=== PATIENT | female | born 1955 | race Caucasian/White ===

== ENCOUNTER 2020-02-17 13:06 | Emergency (ER) | payer MEDICARE ==
[~2020-02-17] VITALS: Ht 165.1 cm; Wt 90.7 kg
--- NOTE | 2020-02-17 13:20 | NUR ---
BIB SELF C/O COUGH SINCE FEB 09 "IM FEELING TIRED ALL THE TIME" "I JUST WANT XRAY." PATIENT A/OX4, BREATHING EVEN AND UNLABORED, NOSOB NOTED. NEEDS ATTENDED.
--- NOTE | 2020-02-17 14:25 | NUR ---
COVID SWAB SENT.
[2020-02-17] MEDS ORDERED: AZITHROMYCIN 250 MG TABLET ONE (14:27)
[2020-02-17] MEDS ORDERED: DEXAMETHASONE 4 MG TABLET ONE (14:28)
[2020-02-17] MEDS ORDERED: DEXAMETHASONE 1 MG TABLET ONE (14:28)
[2020-02-17] MEDS ORDERED: AZITHROMYCIN 250 MG TABLET PO ONE (14:30)
[2020-02-17] MEDS ORDERED: DEXAMETHASONE 1 MG TABLET PO ONE (14:30)
--- NOTE | 2020-02-17 16:03 | NUR ---
received a call from the lab regarding covid 19 result "positive".
--- NOTE | 2020-02-17 16:21 | NUR ---
Patient a/ox4, breathing even and unlabored, no sob noted. Needs attended. Kept comfortable. IV removed. Catheter intact and site benign. Pressure and 4x4 applied to site. No bleeding noted.Patient discharged to home in stable condition. Written and verbal after care instructions given. Patient verbalizes understanding of instruction.
[2020-02-17 16:23] VITALS: BP 159/87
== END 2020-02-17 16:23 | disposition home or self-care (01) ==
LOC: ER 13:10
DX: U07.1 COVID-19 (principal); J12.82 Pneumonia due to coronavirus disease 2019; I10 Essential (primary) hypertension; E11.9 Type 2 diabetes mellitus without complications
CPT/HCPCS: 71045; 82962; 87426; 99284; J8540 ×2; C9803

== ENCOUNTER 2020-02-21 23:11 | Inpatient (IN) | payer MEDICARE ==
[~2020-02-21] VITALS: Ht 165.1 cm; Wt 91.2 kg
--- NOTE | 2020-02-21 23:15 | NUR ---
TO ER BED 17 BIB WHEELCHAIR C/O GENERALIZED WEAKNESS AND SOB X1 DAY. TESTED COVID (+) Feb. PT AAOX4, NOTED PT O2 SAT 84% ON RA. PLACE PT ON CARDIAC MONITORING, CONITNUOUS POX. PLACE PT ON 10L/SIMPLE MASK, O2 SAT INCREASED TO 95%. STARTED SL 18G TO R HAND, BLOOD DRAWN AND SENT TO LAB. ER MD AT BESIDE TO EVAL PT WITH ORDERS RECEIVED. WILL CARRY OUT ORDERS.
[2020-02-21 23:47] LABS: BASOPHILS % (AUTO) 0.3 % (0.0-2.0); EOSINOPHILS % (AUTO) 0.1 % (0.0-6.0); HEMATOCRIT 41 % (33-45); LYMPHOCYTES # (AUTO) 0.8 /CMM (0.8-4.8); LYMPHOCYTES % (AUTO) 11.1 % (20.0-44.0); MEAN CORPUSCULAR HGB CONC 34 g/dl (31.0-36.0); MEAN CORPUSCULAR VOLUME 91 fL (82-100); MONOCYTES # (AUTO) 0.2 /CMM (0.1-1.30); MONOCYTES % (AUTO) 2.9 % (2.0-12.0); NEUTROPHILS # (AUTO) 6.5 /CMM (1.8-8.9); NEUTROPHILS % (AUTO) 85.6 % (43.0-81.0); PLATELET COUNT (AUTO) 246 /CMM (150-450); RED BLOOD CELL COUNT(AUTO) 4.52 MIL/uL (4.0-5.2); WHITE BLOOD COUNT (AUTO) 7.6 K/uL (4.3-11.0)
[2020-02-21] MEDS ORDERED: AZITHROMYCIN 500 MG VIAL ONE (23:55)
[2020-02-21] MEDS ORDERED: CEFTRIAXONE 1GM BAG (ER ONLY) 50 ML IV ONE (23:55)
[2020-02-21] MEDS ORDERED: methylPREDNISolone SOD SUCC 125 MG/2ML VIAL ONE (23:55)
[2020-02-22] MEDS ORDERED: CEFTRIAXONE 1GM BAG (ER ONLY) 1 GM/50 ML PIGGYBACK IV ONE
[2020-02-22] MEDS ORDERED: AZITHROMYCIN 500 MG in IV D5W 250 ML IV ONE ×2
[2020-02-22] MEDS ORDERED: methylPREDNISolone SOD SUCC 125 MG/2ML VIAL IV ONE
[2020-02-22 00:19] LABS: ALBUMIN 2.8 g/dL (3.4-5.0); CALCIUM, SERUM 8.8 mg/dL (8.5-10.1); CREATININE 0.9 mg/dL (0.6-1.3); TOTAL PROTEIN, SERUM 7.5 g/dL (6.4-8.2)
[2020-02-22 00:35] LABS: BILIRUBIN,TOTAL 0.3 mg/dL (0.2-1.0)
--- NOTE | 2020-02-22 00:35 | NUR ---
DR. PETER SPEAKING WITH DR. HONEY STONE REGARDING ADMISSION
[2020-02-22 01:23] LABS: POTASSIUM 2.8 mmol/L (3.5-5.1)
[2020-02-22] MEDS ORDERED: POTASSIUM CHLORIDE 20 MEQ TAB.PRT.SR PO ONE ×2 (01:30)
[2020-02-22 02:23] LABS: C-REACTIVE PROTEIN 25.7 mg/dL (0.0-0.9)
--- NOTE | 2020-02-22 03:46 | NUR ---
pt assissted to restroom and changed to bed 4. pt rerturned to [facility], no complain of pain or discomfort vss
[2020-02-22] MEDS ORDERED: LISI-604 PO (08:43)
[2020-02-22] MEDS ORDERED: ENOXAPARIN SODIUM 40 MG/0.4 ML DISP.SYRIN SQ SCH (10:30)
[2020-02-22] MEDS ORDERED: LABETALOL HCL IV 100MG VIAL IV PRN (11:00)
[2020-02-22] MEDS: DEXAMETHASONE SOD PHOSPHATE 10 MG/ML VIAL IV SCH (13:30)
[2020-02-22] MEDS: ENOXAPARIN SODIUM 40 MG/0.4 ML DISP.SYRIN SQ SCH ×2 (13:30→21:15)
[2020-02-22] MEDS ORDERED: ENOXAPARIN SODIUM 40 MG/0.4 ML DISP.SYRIN SQ ONE ×2 (13:41→20:58)
[2020-02-22] MEDS ORDERED: DEXAMETHASONE SOD PHOSPHATE 10 MG/ML VIAL ONE (13:41)
[2020-02-22] MEDS ORDERED: LABETALOL HCL IV 100MG VIAL ONE (13:41)
[2020-02-22] MEDS ORDERED: REMDESIVIR (CHARGED) 200 MG, *LOADING DOSE 1 EA in IV NS 0.9% 210 ML IV ONE (15:00)
--- NOTE | 2020-02-22 15:00 | NUR ---
bp rechecked. post administration of labetalol. bp noted at 156/63
--- NOTE | 2020-02-22 19:15 | NUR ---
rec'd report from GOPAL Valencia for jeff
--- NOTE | 2020-02-22 21:13 | NUR ---
INFORMED LAB THAT DR LARSON WILL GIVE COMPLETED IND FORM TO LAB TOMORROW IN THE AM.
--- NOTE | 2020-02-23 00:54 | NUR ---
BED ASSIGNMENT 202
--- NOTE | 2020-02-23 01:01 | NUR ---
bed 202 given to GOPAL Leroy for jeff. Mariaa will notify when room is cleaned and available
--- NOTE | 2020-02-23 01:31 | NUR ---
REPORT GIVEN TO GOPAL HERNANDEZ. WILL TRANSPORT PT VIA ACLS PROTOCOL.
[2020-02-23 01:45] VITALS: BP 165/88
--- NOTE | 2020-02-23 01:45 | NUR ---
BALANCE ASSEMBLERCASH TELLER NOTE Patient arrived via gurney at 0145. VS BP165/88 T98 P85 R20 O295%. A/O x4. Tele monitor sinus rhythm. Breathing even, diminished mild labor with non-productive cough. Patient on 15L non-rebreather mask, tolerating well. No JVD. Tongue midline, no tracheal deviation. Brachial and pedal pulses 2+, symmetrical. Sensations intact. No numbness or tingling. Skin is warm, pink, dry, intact. IV site right hand 18g saline locked, patent and intact. No signs of redness or infiltration. Abdomen large, round, soft, non-tender. BS active. Patient is continent with BRP. Urine output clear and yellow without difficulty. No edema. Able to move extremities well. House Shorer strength 5+. Patient is ambulatory. Patient oriented to room. All belongings and valuables reviewed and documented. Bed in low position, wheels locked, side rails up x2, call light within reach.
[2020-02-23 02:30] VITALS: BP 165/88
[2020-02-23 04:00] VITALS: BP 169/78
[2020-02-23] MEDS ORDERED: ENALAPRILAT INJ (1.25 MG/ML) 1.25 MG/ML VIAL IV ONE (04:45)
[2020-02-23] MEDS: ENALAPRILAT DIHYD. (2.5MG/2ML) 1.25 MG/ML VIAL IV PRN ×2 (04:53→16:52)
--- NOTE | 2020-02-23 06:13 | NUR ---
CIRCUIT RECORDER CLOSING NOTE Patient asleep in bed, A/O x4. Tele monitor sinus rhythm. Breathing even, diminished mild labor with non-productive cough. Patient on 15L non-rebreather mask, tolerating well. IV site right hand 18g saline locked, patent and intact. No signs of redness or infiltration. Patient is continent with BRP. Urine output clear and yellow without difficulty. No edema. Bed in low position, wheels locked, side rails up x2, call light within reach.
[2020-02-23 07:00] LABS: HEMATOCRIT 40 % (33-45); HEMOGLOBIN 13.7 g/dL (11.5-14.8); LYMPHOCYTES # (AUTO) 0.5 /CMM (0.8-4.8); LYMPHOCYTES % (AUTO) 7.7 % (20.0-44.0); MEAN CORPUSCULAR HGB CONC 34 g/dl (31.0-36.0); MEAN CORPUSCULAR VOLUME 91 fL (82-100); MONOCYTES # (AUTO) 0.4 /CMM (0.1-1.30); MONOCYTES % (AUTO) 5.6 % (2.0-12.0); NEUTROPHILS # (AUTO) 5.6 /CMM (1.8-8.9); NEUTROPHILS % (AUTO) 86.7 % (43.0-81.0); PLATELET COUNT (AUTO) 298 /CMM (150-450); WHITE BLOOD COUNT (AUTO) 6.5 K/uL (4.3-11.0)
[2020-02-23 07:26] LABS: ALBUMIN 2.5 g/dL (3.4-5.0); BILIRUBIN,DIRECT 0.1 mg/dL (0.0-0.2); BILIRUBIN,TOTAL 0.2 mg/dL (0.2-1.0); CREATININE 0.8 mg/dL (0.6-1.3); MAGNESIUM 2.5 mg/dL (1.8-2.4); PHOSPHORUS 3.1 mg/dL (2.5-4.9); POTASSIUM 3.2 mmol/L (3.5-5.1); TOTAL PROTEIN, SERUM 7.1 g/dL (6.4-8.2)
--- NOTE | 2020-02-23 07:43 | NUR ---
TELE/RN OPENING NOTES RECEIVED PATIENT ON BED. PATIENT IN NO APPARENT RESPIRATORY DISTRESS NOTED. NO SIGN AND SYMPTOM OF PAIN NOTED AT THIS TIME. WILL CONTINUE TO MONITOR.
[2020-02-23] MEDS: DEXAMETHASONE SOD PHOSPHATE 10 MG/ML VIAL IV SCH (09:24)
[2020-02-23] MEDS: ENOXAPARIN SODIUM 40 MG/0.4 ML DISP.SYRIN SQ SCH ×2 (09:29→21:14)
[2020-02-23] MEDS ORDERED: POTASSIUM CHLORIDE 20 MEQ TAB.PRT.SR PO ONE (11:30)
[2020-02-23] MEDS ORDERED: REMDESIVIR (CHARGED) 100 MG in IV NS 0.9% 230 ML IV SCH (15:00)
[2020-02-23] MEDS: REMDESIVIR (CHARGED) 100 MG in IV NS 0.9% 100 ML IV SCH (16:31)
--- NOTE | 2020-02-23 19:18 | NUR ---
TELE/RN CLOSING NOTES PATIENT IS ON BED. PATIENT IS ON 15L OXYGEN VIA NON REBREATHER MASK SATURATION 95%. PATIENT IN NO APPARENT RESPIRATORY DISTRESS. NO COMPLAINED OF PAIN NOTED AT THIS TIME. TELE MONITOR READING SINUS RHYTHM 77 BPM. SEEN AND EXAMINED BY MD WITH ORDERS MADE AND CARRIED OUT. ALL DUE MEDICATIONS WAS GIVEN. WILL ENDORSED TO CALL CENTRE SUPERVISOR FOR MAYA
--- NOTE | 2020-02-23 19:30 | NUR ---
manager economic opening notes Received Pt from morning nurse. Pt is resting in bed comfortably. Pt is alert and orientedX3. Respiration is on non rebreather mask 15 L FI02 90% with O2 sat is 100%. No SOB. No S/S of distress noted. IV site at R hand # 18 is clean, intact and flushes well, SL. Tele monitor showed SR hr at 77 bpm. Safety precautions is maintained. Bed at low position, brakes locked, side rails upX2 and call light is within reach. Will continue to monitor.
[2020-02-23 20:00] VITALS: BP 152/83
[2020-02-24] VITALS (8 sets, daily range): BP systolic 156–173; BP diastolic 75–90
--- NOTE | 2020-02-24 06:40 | NUR ---
phototypesetting equipment monitor closing notes Pt is resting in bed comfortably. Pt is alert and orientedX3. Respiration is on non rebreather mask 15 L FI02 90% with O2 sat is 95%. No SOB. No S/S of distress noted. IV site at R hand # 18 is clean, intact and flushes well, SL. Tele monitor showed SR hr at 67 bpm. VS is stable. Afebrile. Kept Pt clean, dry and comfortable. All needs met and attended. Safety precautions is maintained. Bed at low position, brakes locked, side rails upX2 and call light is within reach. Will endorse to morning nurse for MAYA.
--- NOTE | 2020-02-24 07:40 | NUR ---
TELE/RN OPENING NOTES RECEIVED PATIENT ON BED. PATIENT IS ON NON REBREATHER MASK AT PRESCRIBED SETTINGS. PATIENT IN NO APPARENT RESPIRATORY DISTRESS NOTED. NO COMPLAINED OF PAIN NOTED AT THIS TIME. TELE MONITOR READING SINUS RHYTHM 74 BPM. WILL CONTINUE TO MONITOR.
[2020-02-24 07:49] LABS: ALBUMIN 2.5 g/dL (3.4-5.0); BILIRUBIN,DIRECT 0.1 mg/dL (0.0-0.2); BILIRUBIN,TOTAL 0.4 mg/dL (0.2-1.0); CREATININE 0.8 mg/dL (0.6-1.3); MAGNESIUM 2.5 mg/dL (1.8-2.4); PHOSPHORUS 3.4 mg/dL (2.5-4.9); POTASSIUM 3.7 mmol/L (3.5-5.1); TOTAL PROTEIN, SERUM 6.9 g/dL (6.4-8.2)
[2020-02-24 07:55] LABS: BASOPHILS % (AUTO) 0.1 % (0.0-2.0); EOSINOPHILS % (AUTO) 0.3 % (0.0-6.0); HEMATOCRIT 41 % (33-45); LYMPHOCYTES # (AUTO) 0.8 /CMM (0.8-4.8); LYMPHOCYTES % (AUTO) 10.1 % (20.0-44.0); MEAN CORPUSCULAR HGB CONC 34 g/dl (31.0-36.0); MEAN CORPUSCULAR VOLUME 91 fL (82-100); MONOCYTES # (AUTO) 0.5 /CMM (0.1-1.30); NEUTROPHILS # (AUTO) 6.4 /CMM (1.8-8.9); NEUTROPHILS % (AUTO) 83.5 % (43.0-81.0); PLATELET COUNT (AUTO) 312 /CMM (150-450); RED BLOOD CELL COUNT(AUTO) 4.53 MIL/uL (4.0-5.2); WHITE BLOOD COUNT (AUTO) 7.7 K/uL (4.3-11.0)
[2020-02-24] MEDS: DEXAMETHASONE SOD PHOSPHATE 10 MG/ML VIAL IV SCH (08:52)
[2020-02-24] MEDS: ENOXAPARIN SODIUM 40 MG/0.4 ML DISP.SYRIN SQ SCH ×2 (08:52→21:39)
--- NOTE | 2020-02-24 09:53 | NUR ---
TELE/RN NOTES DR. LARSON ORDER 10 L OXYGEN VIA FACE MASK NOTED AND CARRIED OUT.
--- NOTE | 2020-02-24 10:05 | NUR ---
TELE/RN NOTES PLACE PATIENT ON 10L OXYGEN VIA FACE MASK SATURATION 94% TOLERATING WELL. NO SHORTNESS OF BREATH NOTED. WILL CONTINUE TO MONITOR.
[2020-02-24] MEDS: ENALAPRILAT DIHYD. (2.5MG/2ML) 1.25 MG/ML VIAL IV PRN ×2 (10:26→17:11)
[2020-02-24] MEDS ORDERED: LABETALOL HCL IV 100MG VIAL IV PRN (11:00)
--- NOTE | 2020-02-24 13:03 | NUR ---
TELE/RN NOTES CONVALESCENT PLASMA TRANSFUSION WAS DONE. VITAL SIGN TAKEN AND RECORDED. NO CONVALESCENT PLASMA TRANSFUSION REACTION WAS NOTED. WILL CONTINUE TO MONITOR.
--- NOTE | 2020-02-24 13:03 | NUR ---
TELE/RN NOTES PLATELET TRANSFUSION WAS DONE. VITAL SIGN TAKEN AND RECORDED. NO PLATELET TRANSFUSION REACTION WAS NOTED. WILL CONTINUE TO MONITOR. Addendum: 02/24/20 at 1926 by JOHN BALDERRAMA RN ERROR
[2020-02-24] MEDS: REMDESIVIR (CHARGED) 100 MG in IV NS 0.9% 100 ML IV SCH (14:45)
[2020-02-24] MEDS: CARVEDILOL 6.25 MG TABLET PO SCH (17:12)
--- NOTE | 2020-02-24 19:25 | NUR ---
TELE/RN CLOSING NOTES PATIENT IS ON BED. ALERT AND ORIENTED X3. PATIENT IS ON 10L OXYGEN VIA FACE MASK SATURATION 91%. PATIENT IN NO APPARENT RESPIRATORY DISTRESS. NO COMPLAINED OF PAIN NOTED AT THIS TIME. TELE MONITOR READING SINUS RHYTHM 74BPM. SEEN AND EXAMINED BY MD WITH ORDERS MADE AND CARRIED OUT. ALL DUE MEDICATIONS WAS GIVE. SAFETY PRECAUTIONS WAS IN PLACED. BED IN LOWEST POSITION AND LOCKED. SIDE RAILS UP X2. CALL LIGHT WITHIN REACH. WILL ENDORSED TO SPACE PLANNER FOR MAYA.
--- NOTE | 2020-02-24 19:26 | NUR ---
LIONEL/GOPAL NOTES CONVALESCENT PLASMA TRANSFUSION WAS DONE. VITAL SIGN TAKEN AND RECORDED. NO CONVALESCENT PLASMA TRANSFUSION REACTION WAS NOTED. WILL CONTINUE TO MONITOR. Addendum: 02/24/20 at 1927 by JOHN BALDERRAMA RN ERROR
--- NOTE | 2020-02-24 19:30 | NUR ---
TELE/RN OPENING NOTES RECEIVED PATIENT IN BED RESTING. PATIENT IS ALERT AND ORIENTED X 3. PATIENT BREATHING IS EVEN AND UNLABORED. NO SIGNS OF RESPIRATORY DISTRESS NOTED. PATIENT IN NO SIGNS OF DISTRESS. PATIENT HAS IV ACCESS ON RIGHT HAND #18G SL. SAFETY MEASURES ARE IN PLACED, BED IS LOCKED AND PLACED IN THE LOWEST POSITION, SIDE RAILS UP X 2, CALL LIGHT WITHIN REACH. WILL CONTINUE TO MONITOR THROUGH OUT SHIFT.
[2020-02-25] VITALS: BP 162/83
[2020-02-25 04:00] VITALS: BP 171/88
[2020-02-25] MEDS: ENALAPRILAT DIHYD. (2.5MG/2ML) 1.25 MG/ML VIAL IV PRN (05:02)
--- NOTE | 2020-02-25 05:05 | NUR ---
TELE/RN NOTES PATIENTS BLOOD PRESSURES NOTED AT 171/88. PATIENT GIVEN VASOTEC 2.5MG IVP. PATIENT IN NO SIGNS OF DISTRESS. WILL CONTINUE TO MONITOR.
--- NOTE | 2020-02-25 06:30 | NUR ---
TELE/RN CLOSING NOTES PATIENT IN BED RESTING. PATIENT IS ALERT AND ORIENTED X 3. PATIENT BREATHING IS EVEN AND UNLABORED. NO SIGNS OF RESPIRATORY DISTRESS NOTED. PATIENT IN NO SIGNS OF DISTRESS. TELE READING SR 72. PATIENT HAS IV ACCESS ON RIGHT HAND #18G SL. ALL NEEDS HAVE BEEN MET DURING SHIFT. SAFETY MEASURES ARE IN PLACED, BED IS LOCKED AND PLACED IN THE LOWEST POSITION, SIDE RAILS UP X 2, CALL LIGHT WITHIN REACH. WILL ENDORSE CARE TO DAY SHIFT NURSE.
[2020-02-25 06:46] LABS: BASOPHILS % (AUTO) 0.2 % (0.0-2.0); EOSINOPHILS % (AUTO) 0.5 % (0.0-6.0); HEMATOCRIT 40 % (33-45); HEMOGLOBIN 13.7 g/dL (11.5-14.8); LYMPHOCYTES # (AUTO) 0.9 /CMM (0.8-4.8); LYMPHOCYTES % (AUTO) 12.6 % (20.0-44.0); MEAN CORPUSCULAR HGB CONC 34 g/dl (31.0-36.0); MEAN CORPUSCULAR VOLUME 90 fL (82-100); MONOCYTES # (AUTO) 0.5 /CMM (0.1-1.30); MONOCYTES % (AUTO) 6.2 % (2.0-12.0); NEUTROPHILS % (AUTO) 80.5 % (43.0-81.0); PLATELET COUNT (AUTO) 311 /CMM (150-450); RED BLOOD CELL COUNT(AUTO) 4.41 MIL/uL (4.0-5.2); WHITE BLOOD COUNT (AUTO) 7.4 K/uL (4.3-11.0)
[2020-02-25 07:17] LABS: ALBUMIN 2.6 g/dL (3.4-5.0); BILIRUBIN,DIRECT 0.1 mg/dL (0.0-0.2); BILIRUBIN,TOTAL 0.4 mg/dL (0.2-1.0); CALCIUM, SERUM 8.7 mg/dL (8.5-10.1); CREATININE 0.7 mg/dL (0.6-1.3); PHOSPHORUS 3.7 mg/dL (2.5-4.9); POTASSIUM 3.2 mmol/L (3.5-5.1); TOTAL PROTEIN, SERUM 6.7 g/dL (6.4-8.2)
--- NOTE | 2020-02-25 07:30 | NUR ---
TELE/RN OPENING NOTE Patient is resting in bed, A&O x 3, easily arousable to tactile and verbal stimulation. Breathing even and non-labored on 15 L via non-rebreather mask, no SOB noted. No respiratory or cardiac distress noted. On tele monitor, reading SR 73. IV access noted on R hand #18g, patent and intact, and flushing well. Bed locked to its lowest position, side rails x 2 up, call light in hand. Will continue with current medical management.
[2020-02-25 07:34] LABS: MAGNESIUM 2.5 mg/dL (1.8-2.4)
--- NOTE | 2020-02-25 09:00 | NUR ---
TELE/RN NOTE Patient's IV access on R Hand #18 was accidentally pulled out by patient, placed clean dry dressing and tape, and applied pressure. Inserted new IV access on R hand #22g, patent and intact, blood return noted, and flushing well.
[2020-02-25] MEDS: DEXAMETHASONE SOD PHOSPHATE 10 MG/ML VIAL IV SCH (09:26)
[2020-02-25] MEDS: CARVEDILOL 6.25 MG TABLET PO SCH ×2 (09:26→16:54)
[2020-02-25] MEDS: ENOXAPARIN SODIUM 40 MG/0.4 ML DISP.SYRIN SQ SCH ×2 (09:27→20:39)
--- NOTE | 2020-02-25 11:00 | NUR ---
TELE/RN NOTE Bethanie INTELLIGENCE GROUP SUPERVISOR at bedside, ordered to titrate oxygen down to face mask 10 L. Patient saturating at 91-93%, no respiratory distress noted.
[2020-02-25] MEDS: POTASSIUM CHLORIDE 20 MEQ TAB.PRT.SR PO SCH ×2 (11:10→12:14)
[2020-02-25 12:00] VITALS: BP 146/78
[2020-02-25] MEDS: REMDESIVIR (CHARGED) 100 MG in IV NS 0.9% 100 ML IV SCH (15:35)
[2020-02-25 16:00] VITALS: BP 162/87
[2020-02-25 16:53] VITALS: BP 170/89
--- NOTE | 2020-02-25 19:16 | NUR ---
TELE/RN CLOSING NOTE Patient is resting in bed, A&O x 3, easily arousable to tactile and verbal stimulation. Breathing even and non-labored on 10 L via face mask, no SOB noted. No respiratory or cardiac distress noted. On tele monitor, reading SR 70. IV access noted on R hand #18g, patent and intact, and flushing well. Fall precautions maintained. Will endorse to manufacturing supervisor 2nd shift nurse.
--- NOTE | 2020-02-25 19:30 | NUR ---
TELE/RN NOTE Patient desaturating to 84% on 10 L via face mask at rest. Patient requests to increase oxygen, placed on 15 L non rebreather mask, tolerating well at 97%, appears well and comfortable.
--- NOTE | 2020-02-25 19:35 | NUR ---
TELE/RN OPENING NOTES: RECEIVED PATIENT RESTING IN BED, A&O X 3, VERBALLY RESPONSIVE AND ABLE TO MAKE NEEDS KNOWN. BREATHING EVEN AND NON-LABORED ON 15 L NON REBREATHER MASK, TOLERATING WELL AT 97%, NO SOB NOTED. NO RESPIRATORY OR CARDIAC DISTRESS NOTED. ON TELE MONITOR, READING SR 70. IV ACCESS NOTED ON R HAND #18G, PATENT AND INTACT, AND FLUSHING WELL. FALL PRECAUTIONS MAINTAINED. WILL CONTINUE TO MONITOR PT ACCORDINGLY AND CONTINUE PLAN OF CARE.
[2020-02-25 20:15] VITALS: BP 148/78
[2020-02-26] VITALS: BP 153/89
[2020-02-26 04:00] VITALS: BP 142/80
--- NOTE | 2020-02-26 06:16 | NUR ---
TELE/RN CLOSING NOTES: PT. REMAINS A&O X 3, NO SIGNIFICANT CHANGES IN CONDITION. BREATHING EVEN AND NON-LABORED ON 15 L NON REBREATHER MASK, TOLERATING WELL AT 96%, NO SOB NOTED. NO RESPIRATORY OR CARDIAC DISTRESS NOTED. ON TELE MONITOR, READING SR 70. IV ACCESS NOTED ON R HAND #18G, PATENT AND INTACT, AND FLUSHING WELL. FALL PRECAUTIONS MAINTAINED. ALL NURSING NEEDS MET AND RENDERED, ALL DUE MEDS GIVEN ORDERED. WILL ENDORSED TO DAY SHIFT FOR MAYA.
[2020-02-26 07:16] LABS: BASOPHILS % (AUTO) 0.1 % (0.0-2.0); HEMATOCRIT 40 % (33-45); HEMOGLOBIN 13.5 g/dL (11.5-14.8); LYMPHOCYTES % (AUTO) 14.3 % (20.0-44.0); MEAN CORPUSCULAR HGB CONC 34 g/dl (31.0-36.0); MEAN CORPUSCULAR VOLUME 90 fL (82-100); MONOCYTES # (AUTO) 0.5 /CMM (0.1-1.30); MONOCYTES % (AUTO) 7.4 % (2.0-12.0); NEUTROPHILS # (AUTO) 5.5 /CMM (1.8-8.9); NEUTROPHILS % (AUTO) 77.2 % (43.0-81.0); PLATELET COUNT (AUTO) 310 /CMM (150-450); RED BLOOD CELL COUNT(AUTO) 4.44 MIL/uL (4.0-5.2); WHITE BLOOD COUNT (AUTO) 7.1 K/uL (4.3-11.0)
--- NOTE | 2020-02-26 07:25 | NUR ---
KNIFE SETTER ASSEMBLER OPENING NOTES: PATIENT IS IN BED, AWAKE AND VERBALLY RESPONSIVE. A/O X3, ABLE TO MAKE NEEDS KNOWN. BREATHING EVEN AND UNLABORED, ON 15L NON REBREATHER MASK, TOLERATING WELL AT 94%, NO SOB. ON TELE MONITORING, READING OF SR, HR IN THE 70'S. IV LINE ON ON R HAND #22, PATENT AND INTACT. SEEN EATING BREAKFAST. SAFETY PRECAUTIONS IN PLACE: BED LOCKED AND ON LOWEST POSITION, SR UP X2, CALL LIGHT W/IN REACH. WILL CONTINUE TO MONITOR.
[2020-02-26 08:00] VITALS: BP 158/90
[2020-02-26 08:08] LABS: ALBUMIN 2.6 g/dL (3.4-5.0); BILIRUBIN,DIRECT 0.1 mg/dL (0.0-0.2); BILIRUBIN,TOTAL 0.4 mg/dL (0.2-1.0); CALCIUM, SERUM 8.7 mg/dL (8.5-10.1); CREATININE 0.7 mg/dL (0.6-1.3); MAGNESIUM 2.5 mg/dL (1.8-2.4); PHOSPHORUS 3.5 mg/dL (2.5-4.9); POTASSIUM 3.5 mmol/L (3.5-5.1); TOTAL PROTEIN, SERUM 6.5 g/dL (6.4-8.2)
[2020-02-26] MEDS: DEXAMETHASONE SOD PHOSPHATE 10 MG/ML VIAL IV SCH (08:31)
[2020-02-26] MEDS: CARVEDILOL 6.25 MG TABLET PO SCH ×2 (08:32→16:22)
[2020-02-26] MEDS: ENOXAPARIN SODIUM 40 MG/0.4 ML DISP.SYRIN SQ SCH ×2 (08:33→21:11)
[2020-02-26 12:00] VITALS: BP 159/79
[2020-02-26] MEDS: REMDESIVIR (CHARGED) 100 MG in IV NS 0.9% 100 ML IV SCH (15:09)
--- NOTE | 2020-02-26 15:15 | NUR ---
RN NOTES PATIENT CURRENTLY ON NON-REBREATHER MASK AT 15L, O2 SAT AT 95-97%. TITRATED DOWN TO 10L AT THE MOMENT AND O2 SAT MONITORED, CURRENTLY BETWEEN 94-97% W/ NO COMPLAINT OF SOB NOR RESPIRATORY DISTRESS. WILL CONTINUE TO MONITOR.
[2020-02-26 16:00] VITALS: BP 151/84
--- NOTE | 2020-02-26 19:00 | NUR ---
DOG OR ANIMAL SITTER CLOSING NOTES PATIENT IS IN BED RESTING, AWAKE AND VERBALLY RESPONSIVE. A/O X3, ABLE TO MAKE NEEDS KNOWN. BREATHING EVEN AND UNLABORED, ON 10L NON REBREATHER MASK, TOLERATING WELL AT 93-94%. ON TELE MONITORING, READING OF SR, HR IN THE LOW 70'S, NO CARDIAC DISTRESS NOTED. IV LINE ON ON R HAND #22, PATENT AND INTACT. GIVEN LAST DOSE OF REMDESIVIR TODAY. REMAINS AFEBRILE. SAFETY PRECAUTIONS MAINTAINED: BED LOCKED AND ON LOWEST POSITION, SR UP X2, CALL LIGHT W/IN REACH. WILL ENDORSE TO ASIAN ART CURATOR RN FOR MAYA.
--- NOTE | 2020-02-26 19:32 | NUR ---
AVIATION SAFETY EQUIPMENT TECHNICIAN NOTES PATIENT IN BED, AWAKE, ALERT AND ORIENTED X 3. BREATHING EVEN AND UNLABORED ON NONREBREATHER 10L. SHOWS NO SIGNS OF ACUTE RESPIRATORY DISTRESS. NO ACUTE PAIN. IV ON R HAND 22G SL. ITS CLEAN DRY AND INTACT. SHOWS NO SIGNS OF INFILTRATION, NO REDNESS. SAFETY PRECAUTIONS IN PLACE. BED IN LOWEST POSITION, LOCKED, AND CALL LIGHT KEPT WITHIN REACH. WILL CONTINUE TO MONITOR
[2020-02-26 20:00] VITALS: BP 151/73
[2020-02-27] VITALS: BP 148/85
[2020-02-27 04:00] VITALS: BP 168/88
[2020-02-27 04:01] VITALS: BP 155/81
[2020-02-27 06:20] LABS: BASOPHILS % (AUTO) 0.2 % (0.0-2.0); EOSINOPHILS % (AUTO) 1.2 % (0.0-6.0); HEMATOCRIT 41 % (33-45); HEMOGLOBIN 13.9 g/dL (11.5-14.8); LYMPHOCYTES # (AUTO) 1.1 /CMM (0.8-4.8); LYMPHOCYTES % (AUTO) 14.5 % (20.0-44.0); MEAN CORPUSCULAR HGB CONC 34 g/dl (31.0-36.0); MEAN CORPUSCULAR VOLUME 90 fL (82-100); MONOCYTES # (AUTO) 0.6 /CMM (0.1-1.30); MONOCYTES % (AUTO) 7.1 % (2.0-12.0); PLATELET COUNT (AUTO) 329 /CMM (150-450); RED BLOOD CELL COUNT(AUTO) 4.51 MIL/uL (4.0-5.2); WHITE BLOOD COUNT (AUTO) 7.8 K/uL (4.3-11.0)
--- NOTE | 2020-02-27 06:40 | NUR ---
COMPUTER TECHNOLOGIST NOTES PATIENT IN BED, ASLEEP, ALERT AND ORIENTED X 3. BREATHING EVEN AND UNLABORED ON NONREBREATHER 10L. SHOWS NO SIGNS OF ACUTE RESPIRATORY DISTRESS. NO ACUTE PAIN. IV ON R HAND 22G SL. ITS CLEAN DRY AND INTACT. SHOWS NO SIGNS OF INFILTRATION, NO REDNESS. ALL DUE MEDICATIONS. ALL NEEDS ATTENDED TO. SAFETY PRECAUTIONS IN PLACE. BED IN LOWEST POSITION, LOCKED, AND CALL LIGHT KEPT WITHIN REACH. WILL ENDORSE TO ONCOMING NURSE.
--- NOTE | 2020-02-27 07:20 | NUR ---
SPINDLE CARVER OPENING NOTES PATIENT IS IN BED RESTING, ABLE TO BE AWAKENED. A/O X3, ABLE TO MAKE NEEDS KNOWN. BREATHING EVEN AND UNLABORED, ON 10L NON REBREATHER MASK, NO SOB NOTED. ON TELE MONITORING, READING OF SR, HR IN THE HIGH 60'S, NO CARDIAC DISTRESS NOTED. IV LINE ON ON R HAND #22, PATENT AND INTACT. SAFETY PRECAUTIONS IN PLACE: BED LOCKED AND ON LOWEST POSITION, SR UP X2, CALL LIGHT W/IN REACH. WILL CONTINUE TO MONITOR.
[2020-02-27 07:25] LABS: CALCIUM, SERUM 8.9 mg/dL (8.5-10.1); CREATININE 0.6 mg/dL (0.6-1.3); POTASSIUM 3.6 mmol/L (3.5-5.1)
[2020-02-27] MEDS: DEXAMETHASONE SOD PHOSPHATE 10 MG/ML VIAL IV SCH (09:20)
[2020-02-27] MEDS: CARVEDILOL 6.25 MG TABLET PO SCH ×2 (09:21→16:27)
[2020-02-27] MEDS: ENOXAPARIN SODIUM 40 MG/0.4 ML DISP.SYRIN SQ SCH ×2 (09:22→20:56)
--- NOTE | 2020-02-27 17:00 | NUR ---
RN NOTES DECREASED O2 TO 8L/MIN VIA NRB MASK; PATIENT ABLE TO TOLERATE W/ O2 SAT BETWEEN 93-97%. NO COMPLAINT OF SOB NOR RESPIRATORY DISTRESS. WILL CONTINUE TO MONITOR.
--- NOTE | 2020-02-27 18:49 | NUR ---
APPEALS COURT ASSOCIATE JUSTICE CLOSING NOTES PATIENT IS IN BED AWAKE AND VERBALLY RESPONSIVE. A/O X3, MAKES NEEDS KNOWN. BREATHING EVEN AND UNLABORED, ON 8L NON REBREATHER MASK, NO SOB NOTED. ON TELE MONITORING, READING OF SR W/ HR IN THE MID 70'S, NO CARDIAC DISTRESS. IV LINE ON ON R HAND #22, PATENT AND INTACT, DECADRON GIVEN TODAY. ABLE TO GO TO THE BATHROOM AND AMBULATE W/O ISSUES. SAFETY PRECAUTIONS MAINTAINED: BED LOCKED AND ON LOWEST POSITION, SR UP X2, CALL LIGHT WITHIN REACH. WILL ENDORSE TO ADULT DAYCARE COORDINATOR RN FOR MAYA.
--- NOTE | 2020-02-27 19:30 | NUR ---
RN NOTES PATIENT IS IN BED AWAKE AND VERBALLY RESPONSIVE. A/O X3, MAKES NEEDS KNOWN. BREATHING EVEN AND UNLABORED, ON 8L NON REBREATHER MASK, NO SOB NOTED. ON TELE MONITORING, READING OF SR W/ HR IN THE MID 70'S, NO CARDIAC DISTRESS. IV LINE ON ON R HAND #22, PATENT AND INTACT. ABLE TO GO TO THE BATHROOM AND AMBULATE W/O ISSUES. SAFETY PRECAUTIONS MAINTAINED: BED LOCKED AND ON LOWEST POSITION, SR UP X2, CALL LIGHT WITHIN REACH. WILL CONTINUE TO MONITOR.
[2020-02-27 20:00] VITALS: BP 145/77
[2020-02-28] VITALS: BP 151/80
[2020-02-28 04:00] VITALS: BP 166/88
--- NOTE | 2020-02-28 06:53 | NUR ---
RN NOTES PATIENT IS IN BED AWAKE AND VERBALLY RESPONSIVE. A/O X3, MAKES NEEDS KNOWN. BREATHING EVEN AND UNLABORED, ON 8L NON REBREATHER MASK, NO SOB NOTED. ON TELE MONITORING, READING OF SR W/ HR IN THE MID 70'S, NO CARDIAC DISTRESS. IV LINE ON ON R HAND #22, PATENT AND INTACT. ABLE TO GO TO THE BATHROOM AND AMBULATE W/O ISSUES. SAFETY PRECAUTIONS MAINTAINED: BED LOCKED AND ON LOWEST POSITION, SR UP X2, CALL LIGHT WITHIN REACH. WILL ENDORSE CARE TO DAY SHIFT
[2020-02-28 07:17] LABS: BASOPHILS % (AUTO) 0.3 % (0.0-2.0); EOSINOPHILS % (AUTO) 0.7 % (0.0-6.0); HEMATOCRIT 40 % (33-45); HEMOGLOBIN 13.5 g/dL (11.5-14.8); LYMPHOCYTES # (AUTO) 1.1 /CMM (0.8-4.8); LYMPHOCYTES % (AUTO) 13.3 % (20.0-44.0); MEAN CORPUSCULAR HGB CONC 34 g/dl (31.0-36.0); MEAN CORPUSCULAR VOLUME 90 fL (82-100); MONOCYTES # (AUTO) 0.6 /CMM (0.1-1.30); MONOCYTES % (AUTO) 7.5 % (2.0-12.0); NEUTROPHILS # (AUTO) 6.7 /CMM (1.8-8.9); NEUTROPHILS % (AUTO) 78.2 % (43.0-81.0); PLATELET COUNT (AUTO) 313 /CMM (150-450); RED BLOOD CELL COUNT(AUTO) 4.44 MIL/uL (4.0-5.2); WHITE BLOOD COUNT (AUTO) 8.6 K/uL (4.3-11.0)
--- NOTE | 2020-02-28 07:45 | NUR ---
RN NOTE Patient is noted in bed, awake, alert and oriented x3. Breathing even and non labored continuing 2L via NC with no signs of acute distress or shortness of breath. Patient continues on tele monitor. IV site to L hand 22G noted patent and intact. All medications administered as per order and tolerated well. Safety precautions in place with bed in lowest position and locked. All needs attended to promptly. Call light within reach. Will endorse to continue plan of care as ordered. Addendum: 02/29/20 at 0818 by SIMONE BUTTS RN Entered in error
[2020-02-28 07:51] LABS: CALCIUM, SERUM 8.6 mg/dL (8.5-10.1); CREATININE 0.7 mg/dL (0.6-1.3); MAGNESIUM 2.4 mg/dL (1.8-2.4); PHOSPHORUS 3.7 mg/dL (2.5-4.9); POTASSIUM 3.6 mmol/L (3.5-5.1)
[2020-02-28 08:00] VITALS: BP 166/88
--- NOTE | 2020-02-28 08:00 | NUR ---
RN Opening note Received patient in bed, awaken able to responds all stimuli, Pt does no appears pain or distress. Skin is warm to touch keep clean/dry intact IV site on right hand 22 g, respiratory even and unlabored with oxygen at 10L via NRM, O2sat 99%. Kept locked bed with elevated HOB for aspiration precaution and ensure airway and lowest bed foe safety. Call light within reach, will continue to monitor.
[2020-02-28] MEDS: ENOXAPARIN SODIUM 40 MG/0.4 ML DISP.SYRIN SQ SCH ×2 (08:19→20:46)
[2020-02-28] MEDS: CARVEDILOL 6.25 MG TABLET PO SCH ×2 (08:20→17:23)
[2020-02-28] MEDS: DEXAMETHASONE SOD PHOSPHATE 10 MG/ML VIAL IV SCH (08:20)
[2020-02-28 12:00] VITALS: BP 157/87
[2020-02-28 16:00] VITALS: BP 161/79
--- NOTE | 2020-02-28 18:38 | NUR ---
RN closing Patient in bed resting, does no appears distress or discomfort. Skin is warm to touch, keep clean/dry, intact midline on right upper arm. Respiratory even and unlabored with oxygen at 2L via [id number] 96%. Kept elevated HOB for ensure air way and aspiration precaution and lowest bed for safety. Call light within reach, will endorse night worker Addendum: 02/28/20 at 1843 by EWA LEVY RN Error
--- NOTE | 2020-02-28 18:43 | NUR ---
RN closing Patient in bed resting, does no appears distress or discomfort. Skin is warm to touch, keep clean/dry, intact IV site on right upper arm. Respiratory even and unlabored with oxygen at 2L via [id number] 96%. Kept elevated HOB for ensure air way and aspiration precaution and lowest bed for safety. Call light within reach, will endorse car shifter.
--- NOTE | 2020-02-28 19:20 | NUR ---
RN NOTE Patient Received. Patient is noted in bed, awake, alert and oriented x3. Breathing even and non labored continuing 2L via NC with no signs of acute distress or shortness of breath. Patient continues on tele monitor. IV site to L hand 22G noted patent and intact. Safety precautions in place with bed in lowest position and locked. All needs attended to promptly. Call light within reach. Will continue plan of care as ordered.
[2020-02-28 20:00] VITALS: BP 152/75
[2020-02-29] VITALS (7 sets, daily range): BP systolic 130–167; BP diastolic 4–80
--- NOTE | 2020-02-29 07:10 | NUR ---
BLOW UP OPERATOR OPENING NOTE RECEIVED PT AWAKE IN BED AT THIS TIME. PT AOX4. PT ABLE TO VERBALIZE NEEDS. NO SOB NOTED, NO S/S OF ANY ACUTE DISTRESS NOTED, NO C/O PAIN AT THIS TIME. PT NOTED ON OXYGEN @ 2LPM VIA NC SATURATING @ 96%. PT ON EXTERNAL TELE WORSHIP DIRECTOR READING SR 65. IV ACCESS NOTED IN LEFT HAND G#22, INTACT, PATENT AND FLUSHING WELL. SAFETY PRECAUTIONS IN PLACE AND MAINTAINED AT ALL TIMES. BED IN LOWEST LOCKED POSITION, SIDE RAILS UP, HOB ELEVATED, TABLE AND CALL LIGHT WITHIN REACH. WILL CONTINUE TO MONITOR.
--- NOTE | 2020-02-29 07:40 | NUR ---
RN NOTE Patient is noted in bed, awake, alert and oriented x3. Breathing even and non labored continuing 2L via NC with no signs of acute distress or shortness of breath. Patient continues on tele monitor. IV site to L hand 22G noted patent and intact. All medications administered as per order and tolerated well. Safety precautions in place with bed in lowest position and locked. All needs attended to promptly. Call light within reach. Will endorse to continue plan of care as ordered.
[2020-02-29] MEDS: DEXAMETHASONE SOD PHOSPHATE 10 MG/ML VIAL IV SCH (08:59)
[2020-02-29] MEDS: CARVEDILOL 6.25 MG TABLET PO SCH ×2 (09:01→17:39)
[2020-02-29] MEDS: ENOXAPARIN SODIUM 40 MG/0.4 ML DISP.SYRIN SQ SCH ×2 (09:01→21:34)
--- NOTE | 2020-02-29 19:10 | NUR ---
RN CLOSING NOTES PT AWAKE IN BED AT THIS TIME. PT REMAINED STABLE THROUGHOUT SHIFT. ALL CARE, NEED, MEDICATIONS AND TREATMENT ADMINISTERED ANTICIPATED PER ORDER. PT KEPT CLEAN AND DRY. SAFETY PRECAUTION IN PLACE AND MAINTAINED AT ALL TIMES. BED IN LOWEST LOCKED POSITION, HOB ELEVATED, SIDE RAILS UP X 2, CALL LIGHT AND TABLE WITHIN REACH. ENDORSED TO INSTRUCTOR WEAVING NURSE FOR MAYA
--- NOTE | 2020-02-29 19:30 | NUR ---
TELE/RN OPENING NOTES RECEIVED PATIENT IN BED RESTING. PATIENT IS ALERT AND ORIENTED X 4. PATIENTS BREATHING IS EVEN AND UNLABORED. PATIENT IN NO SIGNS OF RESPIRATORY DISTRESS. PATIENT STATES NO SIGNS OF PAIN AT THIS TIME. TELE READING NSR. PATIENT HAS IV ACCESS ON LEFT HAND #22G FLUSHING WELL. SAFETY MEASURES ARE IN PLACE, BED IS LOCK AND PLACED IN THE LOWEST POSITION, SIDE RAILS UP X 2, CALL LIGHT IS WITHIN REACH. WILL CONTINUE TO MONITOR THROUGH OUT SHIFT.
[2020-03-01] VITALS: BP 145/75
[2020-03-01 04:00] VITALS: BP 152/81
--- NOTE | 2020-03-01 06:40 | NUR ---
TELE/RN CLOSING NOTES PATIENT IN BED SLEEPING. PATIENT IS ALERT AND ORIENTED X 4. PATIENTS BREATHING IS EVEN AND UNLABORED. PATIENT IN NO SIGNS OF RESPIRATORY DISTRESS. TELE READING NSR. PATIENT HAS IV ACCESS ON LEFT HAND #22G FLUSHING WELL. ALL PATIENT NEEDS HAVE BEEN MET DURING SHIFT. SAFETY MEASURES ARE IN PLACE, BED IS LOCK AND PLACED IN THE LOWEST POSITION, SIDE RAILS UP X 2, CALL LIGHT IS WITHIN REACH. WILL ENDORSE CARE TO DAY SHIFT NURSE.
[2020-03-01 06:50] LABS: BASOPHILS % (AUTO) 0.2 % (0.0-2.0); EOSINOPHILS % (AUTO) 2.5 % (0.0-6.0); HEMATOCRIT 40 % (33-45); HEMOGLOBIN 13.6 g/dL (11.5-14.8); LYMPHOCYTES # (AUTO) 1.7 /CMM (0.8-4.8); LYMPHOCYTES % (AUTO) 16.7 % (20.0-44.0); MEAN CORPUSCULAR HGB CONC 34 g/dl (31.0-36.0); MEAN CORPUSCULAR VOLUME 91 fL (82-100); MONOCYTES # (AUTO) 0.7 /CMM (0.1-1.30); MONOCYTES % (AUTO) 6.8 % (2.0-12.0); NEUTROPHILS # (AUTO) 7.6 /CMM (1.8-8.9); NEUTROPHILS % (AUTO) 73.8 % (43.0-81.0); PLATELET COUNT (AUTO) 297 /CMM (150-450); RED BLOOD CELL COUNT(AUTO) 4.42 MIL/uL (4.0-5.2); WHITE BLOOD COUNT (AUTO) 10.3 K/uL (4.3-11.0)
[2020-03-01 07:31] LABS: CALCIUM, SERUM 8.9 mg/dL (8.5-10.1); CREATININE 0.7 mg/dL (0.6-1.3); MAGNESIUM 2.4 mg/dL (1.8-2.4); PHOSPHORUS 3.9 mg/dL (2.5-4.9); POTASSIUM 4.1 mmol/L (3.5-5.1)
--- NOTE | 2020-03-01 07:53 | NUR ---
SENIOR ENGINEERING MANAGER NOTE PATIENT IN BED RESTING COMFORTABLY. PATIENT IN NO ACUTE DISTRESS. NO SOB NOTED. PATIENT BREATHING IS EVEN AND UNLABORED. PATIENT HOB IS ELEVATED. SAFETY PRECAUTIONS IN PLACE. PATIENT BED IS LOCKED AND IN LOWEST POSITION. CALL LIGHT WITHIN REACH. WILL CONTINUE TO MONITOR.
[2020-03-01 08:00] VITALS: BP_SYST 131; BP_SYST 153; BP_DIAS 77; BP_DIAS 86
[2020-03-01] MEDS: ENOXAPARIN SODIUM 40 MG/0.4 ML DISP.SYRIN SQ SCH ×2 (09:04→21:19)
[2020-03-01] MEDS: CARVEDILOL 6.25 MG TABLET PO SCH ×2 (09:12→16:29)
[2020-03-01] MEDS: DEXAMETHASONE SOD PHOSPHATE 10 MG/ML VIAL IV SCH (09:12)
[2020-03-01 16:00] VITALS: BP 146/72
--- NOTE | 2020-03-01 18:53 | NUR ---
DISTILLERY MILLER HELPER NOTE PATIENT IN BED RESTING COMFORTABLY. PATIENT IN NO ACUTE DISTRESS. NO SOB NOTED. PATIENT BREATHING IS EVEN AND UNLABORED. PATIENT HOB IS ELEVATED. PATIENT ON CARDIAC MONITORING READING SINUS RHYTHM HR 62. SAFETY PRECAUTIONS IN PLACE. PATIENT KEPT CLEAN, DRY, AND COMFORTABLE THROUGHOUT MY SHIFT. PATIENT BED IS LOCKED AND IN LOWEST POSITION. CALL LIGHT WITHIN REACH. WILL ENDORSE CARE TO PM SHIFT FOR MAYA.
--- NOTE | 2020-03-01 19:30 | NUR ---
TELE/RN OPENING NOTES RECEIVED PATIENT IN BED RESTING. PATIENT IS ALERT AND ORIENTED X 4. PATIENTS BREATHING IS EVEN AND UNLABORED. PATIENT IN NO SIGNS OF RESPIRATORY DISTRESS. PATIENT STATES NO SIGNS OF PAIN AT THIS TIME. TELE READING NSR. PATIENT HAS IV ACCESS ON LEFT HAND #22G FLUSHING WELL INTACT. SAFETY MEASURES ARE IN PLACE, BED IS LOCK AND PLACED IN THE LOWEST POSITION, SIDE RAILS UP X 2, CALL LIGHT IS WITHIN REACH. WILL CONTINUE TO MONITOR THROUGH OUT SHIFT.
[2020-03-01 20:00] VITALS: BP 154/72
[2020-03-02] VITALS: BP 144/67
[2020-03-02 04:00] VITALS: BP 139/65
--- NOTE | 2020-03-02 06:30 | NUR ---
TELE/RN CLOSING NOTES PATIENT IN BED RESTING. PATIENT IS ALERT AND ORIENTED X 4. PATIENTS BREATHING IS EVEN AND UNLABORED. PATIENT IN NO SIGNS OF RESPIRATORY DISTRESS. PATIENT STATES NO SIGNS OF PAIN AT THIS TIME. TELE READING SB. PATIENT HAS IV ACCESS ON LEFT HAND #22G FLUSHING WELL INTACT. ALL NEEDS MET DURING SHIFT. SAFETY MEASURES ARE IN PLACE, BED IS LOCK AND PLACED IN THE LOWEST POSITION, SIDE RAILS UP X 2, CALL LIGHT IS WITHIN REACH. WILL ENDORSE CARE TO DAY SHIFT NURSE.
--- NOTE | 2020-03-02 07:39 | NUR ---
LEATHER CRAFTER NOTE PATIENT IN BED RESTING COMFORTABLY. PATIENT IN NO ACUTE DISTRESS. NO SOB NOTED. PATIENT BREATHING IS EVEN AND UNLABORED. PATIENT HOB IS ELEVATED. SAFETY PRECAUTIONS IN PLACE. PATIENT BED IS LOCKED AND IN LOWEST POSITION. CALL LIGHT WITHIN REACH. WILL CONTINUE TO MONITOR.
[2020-03-02 08:00] VITALS: BP 147/62
[2020-03-02] MEDS: DEXAMETHASONE SOD PHOSPHATE 10 MG/ML VIAL IV SCH (09:00)
[2020-03-02] MEDS: CARVEDILOL 6.25 MG TABLET PO SCH (09:00)
[2020-03-02] MEDS: ENOXAPARIN SODIUM 40 MG/0.4 ML DISP.SYRIN SQ SCH (09:01)
--- NOTE | 2020-03-02 15:00 | NUR ---
PRINCIPAL SECRETARY NOTE SPOKE WITH DELMA EPSTEIN REGARDING DISCHARGE PLANNING FOR PATIENT. MD ORDER FOR DISCHARGE GOING BACK HOME. MARCIA POOL HALL INSPECTOR SPOKE WITH FAMILY FOR PATTERN LEASE INSPECTOR WHEN READY. PER DELMA EPSTEIN WILL SEND MEDICATIONS TO PREFERRED PHARMACY WHEN HE CAN AND CAN BE DISCHARGED TODAY WHEN PATIENT IS READY TO GO.
[2020-03-02 15:30] VITALS: BP 139/78
--- NOTE | 2020-03-02 16:32 | NUR ---
LIQUOR DEPARTMENT MANAGERRIGGING ENGINEER NOTE PATIENT MEDICALLY STABLE FOR DISCHARGE. PATIENT IN NO ACUTE DISTRESS. NO SOB NOTED. PATIENT BREATHING IS EVEN AND UNLABORED. PATIENT DC INSTRUCTIONS PROVIDED, PATIENT VERBALIZED UNDERSTANDING. PATIENT TO FOLLOW UP WITH PRESCRIPTIONS AT PREFERRED PHARMACY. PATIENT BELONGINGS LIST SIGNED AND PATIENT HAS BELONGINGS WITH HER. PATIENT REFUSED SKIN ASSESSMENT. EDUCATED RISKS VS BENEFITS. PATIENT CONTINUED TO REFUSE. PATIENT ID BAND REMOVED. IV REMOVED. PATIENT KEPT CLEAN, DRY, AND COMFORTABLE THROUGHOUT MY SHIFT. PATIENT NEEDS AND CONCERNS ADDRESSED. PATIENT DAUGHTER PICKED UP PATIENT GOING BACK HOME. PATIENT AMBULATORY WITH STEADY GAIT. MD AWARE OF DISCHARGE.
== END 2020-03-02 16:32 | disposition home or self-care (01) | DRG 177 ==
LOC: ER 23:13 → TRANSITION 02-22 00:55 → UNDOADMIN 02-22 00:55 → TRANSITION 02-23 01:05 → TELE2 02-23 01:05 → UNDODISIN 03-02 16:32
PROVIDERS: ADMIT Registered Nurse; ATTEND Nurse Practitioner Acute Care
PROC: XW033E5 Introduction of Remdesivir Anti-infective into Peripheral Vein, Percutaneous Approach, New Technology Group 5 (ICD-10-PCS; principal; 2020-02-22)
PROC: XW13325 Transfusion of Convalescent Plasma (Nonautologous) into Peripheral Vein, Percutaneous Approach, New Technology Group 5 (ICD-10-PCS; 2020-02-22)
DX: U07.1 COVID-19 (principal); J12.82 Pneumonia due to coronavirus disease 2019; J96.01 Acute respiratory failure with hypoxia; D68.59 Other primary thrombophilia; I10 Essential (primary) hypertension; E87.6 Hypokalemia; E11.9 Type 2 diabetes mellitus without complications; E66.01 Morbid (severe) obesity due to excess calories; Z68.33 Body mass index [BMI] 33.0-33.9, adult
CPT/HCPCS: 36415; 71045-TC; 80048-TC; 80053-TC; 80076-TC; 82550-TC; 82728-TC; 83605-TC; 83615-TC; 83735-TC; 83880; 84100-TC; 84484-TC; 85025-TC; 85378-TC; 85610-TC; 85730-TC; 86140-TC; 86850-TC; 87040-TC; 87081-TC; A4216; G0378; J0456; J0696; J1100; J1650; J2930; J3490; J7030; J7050; J7060; P9017-BL; U0003

== ENCOUNTER 2023-04-05 08:35 | Emergency (ER) | payer MEDICARE ==
[~2023-04-05] VITALS: Ht 157.5 cm; Wt 90.7 kg
[~2023-04-05 08:35] MED LIST: LISI20TA31 PO
[2023-04-05] MEDS ORDERED: BENZONATATE 100 MG CAPSULE PO ONE (09:06)
[2023-04-05] MEDS: BENZONATATE 100 MG CAPSULE PO PRN (09:08)
[2023-04-05] MEDS ORDERED: ALBU18HF2 INH (10:57)
[2023-04-05] MEDS ORDERED: BENZ-13 PO (10:57)
[2023-04-05 11:08] VITALS: BP 125/87; TEMP 99.2; O2SAT 98
== END 2023-04-05 11:08 | disposition home or self-care (01) ==
LOC: ER 08:41
DX: R05.9 Cough, unspecified (principal); I10 Essential (primary) hypertension; E11.9 Type 2 diabetes mellitus without complications; Z79.899 Other long term (current) drug therapy
CPT/HCPCS: 71045-TC